=== PATIENT | female | born 1965 | race Caucasian/White ===

== ENCOUNTER 2021-09-12 07:52 | Day surgery (SDC) | payer MEDICARE, MEDICAID ==
[~2021-09-12] VITALS: Ht 162.6 cm; Wt 74.8 kg
[2021-09-12] MEDS ORDERED: CLON0.5T23 PO (08:49)
[2021-09-12] MEDS ORDERED: LEVO25TA7 PO (08:49)
[2021-09-12] MEDS ORDERED: ASPI-1497 PO (08:49)
[2021-09-12] MEDS ORDERED: CLOZ100T31 PO (08:49)
[2021-09-12] MEDS ORDERED: CITA40TA69 PO (08:49)
[2021-09-12] MEDS ORDERED: FERR325T6 PO (08:49)
[2021-09-12] MEDS ORDERED: CHOL2000 PO (08:49)
[2021-09-12] MEDS ORDERED: CYAN-50 PO (08:49)
[2021-09-12] MEDS ORDERED: LACTATED RINGERS 1,000 ML IV SCH (09:15)
[2021-09-12 09:30] LABS: BASOPHILS % 0.4 % (0.0-2.0); HEMATOCRIT. 34.7 % (36.0-48.0); HEMOGLOBIN. 11.5 g/dL (12.0-16.0); LYMPHOCYTES % 25.4 % (20.0-50.0); MEAN CORPUSCULAR HEMOGLOBIN 29.3 pg (28.0-32.0); MEAN CORPUSCULAR VOLUME 88.4 fL (81.0-99.0); MEAN PLATELET VOLUME 8.9 fl (7.4-10.4); MONOCYTES % 8.7 % (2.0-8.0); NEUTROPHILS % 65.5 % (40.0-76.0); PLATELET 189 x1000/uL (130-400); RED BLOOD CELL COUNT 3.93 mill/uL (4.2-5.4); RED CELL DISTRIBUTION WIDTH 13.9 % (11.6-14.6)
[2021-09-12] MEDS ORDERED: EPHEDRINE SULFATE 50MG/ML VIAL ONE (10:17)
[2021-09-12] MEDS ORDERED: PROPOFOL 200MG/20ML VIAL IV ONE ×2 (10:17→10:58)
[2021-09-12] MEDS ORDERED: MIDAZOLAM HCL 2 MG/2 ML VIAL ONE ×2 (10:18→10:45)
[2021-09-12] MEDS ORDERED: LIDOCAINE HCL 1% 20ML VIAL (Pyxis) INJ ONE (10:26)
== END 2021-09-12 13:20 | disposition home or self-care (01) ==
LOC: OR 07:52
PROVIDERS: ATTEND Internal Medicine Gastroenterology
DX: D64.9 Anemia, unspecified (principal); K29.50 Unspecified chronic gastritis without bleeding; K63.89 Other specified diseases of intestine; K31.89 Other diseases of stomach and duodenum; E03.9 Hypothyroidism, unspecified; F41.9 Anxiety disorder, unspecified; F32.9 Major depressive disorder, single episode, unspecified; Z79.899 Other long term (current) drug therapy; Z98.890 Other specified postprocedural states; Z79.82 Long term (current) use of aspirin; Z88.0 Allergy status to penicillin
CPT/HCPCS: 36415; 43239; 45378; 85025; 87426; 88305; 88312; 88313; C1893; J2250; J2704; J3490

== ENCOUNTER 2024-12-07 11:57 | Emergency (ER) | payer MEDICARE, MEDICAID ==
[~2024-12-07] VITALS: Ht 162.6 cm; Wt 61.0 kg
[~2024-12-07 11:57] MED LIST: ASPI-1497 PO; CHOL2000 PO; CITA40TA69 PO; CLON0.5T23 PO; CLOZ100T13 PO; CYAN-50 PO; FERR325T6 PO; LEVO25TA7 PO
[2024-12-07 11:59] VITALS: O2SAT 100
[2024-12-07 12:44] LABS: BASOPHILS % 0.6 % (0.0-2.0); EOSINOPHILS % 0.1 % (0.0-5.0); HEMATOCRIT. 38.8 % (36.0-48.0); HEMOGLOBIN. 12.8 g/dL (12.0-16.0); LYMPHOCYTES % 20.3 % (20.0-50.0); MONOCYTES % 6.2 % (2.0-8.0); NEUTROPHILS % 72.8 % (40.0-76.0); RED BLOOD CELL COUNT 4.21 mill/uL (4.2-5.4); RED CELL DISTRIBUTION WIDTH 14.1 % (11.6-14.6)
[2024-12-07 12:55] LABS: CREATININE 1.0 mg/dL (0.6-1.0); UREA NITROGEN BLOOD 9 mg/dL (9-23)
[2024-12-07 12:57] LABS: ASPARTATE AMINOTRANSFERASE 27 IU/L (<34); BILIRUBIN DIRECT < 0.1 mg/dL (<=3.0); BILIRUBIN TOTAL 0.4 mg/dL (0.1-1.0)
[2024-12-07 12:58] LABS: PROTEIN TOTAL 7.0 g/dL (6.0-8.3)
[2024-12-07] MEDS: SODIUM CHLORIDE 0.9% 1,000 ML IV ONE (13:00)
[2024-12-07 13:06] LABS: PLATELET 154 x1000/uL (130-400)
[2024-12-07 14:50] VITALS: BP 145/82; PULSE 81; RESP 16; TEMP 36.8; O2SAT 100
== END 2024-12-07 14:51 | disposition home or self-care (01) ==
LOC: ER 11:57 → CMPBEDREQ 16:42
DX: R19.7 Diarrhea, unspecified (principal); F41.9 Anxiety disorder, unspecified; Z79.899 Other long term (current) drug therapy; Z88.0 Allergy status to penicillin
CPT/HCPCS: 99283; 96360; 80076; 80048; 83690; 83735; 85025; 36415; J7030